=== PATIENT | male | born 1940 | race Caucasian/White ===

== ENCOUNTER 2016-07-13 14:47 | Emergency (ER) | payer OTHER ==
[~2016-07-13] VITALS: Ht 182.9 cm; Wt 73.5 kg
[~2016-07-13 14:47] MED LIST: ADVAIR 100/501 DISK IH; ADVAIR 250-501 EACH IH; ADVAIR 250/501 DISK IH; ADVAIR 500/501 DISK IH; ALBUTEROL S5 MG/1 ML AEROSOL; ALBUTEROL2.5 MG/3 M IH; ALPRAZOLAM0.25 M2 PO; AMLODIPINE BESYL5 MG PO; AUGMENTIN875 MG PO; AZITHROMYCIN250 MG1 PO; BREATHING TREATMENT IH; CEFTIN500 MG PO; CHOLESTROL PO; CIPRO500 MG PO; COLACE100 MG PO; Ceftin PO; DALIRESP500 MCG PO; DELTASONE20 M1 PO; DUONEB 2.5-0.5 M3 ML AEROSOL; Flora-Q,Risaquad PO; HYDROCODON-ACE1 EAC7 PO; LEVAQUIN500 MG PO; LEVAQUIN750 MG PO; LEVOFLOXACIN750 MG PO; Lopressor PO; MEDROL DOSEPAK4 MG PO; Macrobid PO; NAPROSYN500 MG PO; NEXIUM40 MG PO; OMEPRAZOLE40 M1 PO; PERCOCET 5/31 TABLET PO; PRAVACHOL40 MG PO; PRAVASTATIN SOD40 MG PO; PREDNISONE10 MG PO; PREDNISONE20 MG PO; PRILOSEC20 MG PO; PRILOSEC40 MG PO; PROAIR RESPICL90 MCG IH; PROBIOTIC ACID1 EACH PO; PROBIOTIC1 EACH PO; PROTONIX40 MG PO; PROVENTIL,2.5 MG/0.5 IH; SPIRIVA RESPIMAT4 GM IH; SPIRIVA1 INHALATI IH; TRAMADOL HCL50 MG PO; VALIUM5 MG PO; Vicodin,Norco 5/325 PO; ZEGERID OTC 201 EACH PO; ZITHROMAX500 MG PO; [UNRECOGNIZED DRUG - OTHER] PO; predniSONE PO
[2016-07-13 16:01] LABS: HEMATOCRIT 37.3 % (38.0-50.0); MCH 29.9 PG (29.0-34.0); MCHC 33.8 G/DL (30.0-36.0); MCV 88.6 FL (86-99); PLATELET COUNT 174 K/uL (156-360); RBC DIS.WIDTH-CV 14.9 % (11.8-14.6); RBC DIS.WIDTH-SD 47.2 % (39-53); RED BLOOD COUNT 4.21 M/uL (4.00-5.50)
[2016-07-13 16:15] LABS: CHLORIDE 104 mEq/L (99-109); POTASSIUM 3.9 mEq/L (3.7-5.4); SODIUM 140 mEq/L (136-147)
[2016-07-13 16:17] LABS: GLUCOSE 84 mg/dL (70-99)
[2016-07-13 16:19] LABS: ANION GAP 13 MEQ/L (2-14)
[2016-07-13 16:21] LABS: GFR ESTIMATE (CALCULATED) > 59 mL/min/
[2016-07-13 16:22] LABS: UREA NITROGEN (BUN) 14 mg/dL (9-23)
[2016-07-13 18:09] LABS: ADD MIUA? NO; BILIRUBIN SMALL; BLOOD NEGATIVE; COLOR DK YELLOW ((YELLOW)); GLUCOSE (STRIP) NEGATIVE; KETONES TRACE; LEUKOCYTES NEGATIVE; NITRITE NEGATIVE; PROTEIN (STRIP) 30; SPECIFIC GRAVITY 1.026 (1.000-1.030); UCUL ADDED? NO
[2016-07-13 18:40] VITALS: BP 127/89
== END 2016-07-13 18:44 | disposition home or self-care (01) ==
LOC: EME 14:47
PROVIDERS: Emergency Medicine
PROC: 0T9B70Z Drainage of Bladder with Drainage Device, Via Natural or Artificial Opening (ICD-10-PCS; principal; 2016-07-13)
DX: R30.0 Dysuria (principal); R33.9 Retention of urine, unspecified; E78.5 Hyperlipidemia, unspecified; I10 Essential (primary) hypertension; K21.9 Gastro-esophageal reflux disease without esophagitis; Z85.528 Personal history of other malignant neoplasm of kidney; Z85.46 Personal history of malignant neoplasm of prostate; Z85.51 Personal history of malignant neoplasm of bladder; Z85.118 Personal history of other malignant neoplasm of bronchus and lung; Z87.891 Personal history of nicotine dependence
CPT/HCPCS: 80048; 81003; 85027; 99281; 99285; J7030

== ENCOUNTER 2016-07-16 02:58 | Emergency (ER) | payer OTHER ==
[~2016-07-16] VITALS: Ht 182.9 cm; Wt 67.1 kg
[2016-07-16 04:10] LABS: HEMATOCRIT 35.7 % (38.0-50.0); MCH 29.8 PG (29.0-34.0); MCHC 33.9 G/DL (30.0-36.0); MCV 87.9 FL (86-99); MEAN PLAT.VOLUME 8.7 uM^3 (9.0-12.4); PLATELET COUNT 225 K/uL (156-360); RBC DIS.WIDTH-CV 14.6 % (11.8-14.6); RBC DIS.WIDTH-SD 45.9 % (39-53); RED BLOOD COUNT 4.06 M/uL (4.00-5.50); WHITE BLOOD COUNT 7.1 K/uL (4.1-10.2)
[2016-07-16 04:19] LABS: CHLORIDE 104 mEq/L (99-109); POTASSIUM 3.4 mEq/L (3.7-5.4); SODIUM 139 mEq/L (136-147)
[2016-07-16 04:21] LABS: GLUCOSE 82 mg/dL (70-99)
[2016-07-16 04:22] LABS: ANION GAP 14 MEQ/L (2-14)
[2016-07-16 04:23] LABS: TOTAL BILIRUBIN 0.6 mg/dL (0.0-1.0)
[2016-07-16 04:25] LABS: ALKALINE PHOSPHATASE 62 IU/L (3-129); GFR ESTIMATE (CALCULATED) > 59 mL/min/
[2016-07-16 04:26] LABS: UREA NITROGEN (BUN) 12 mg/dL (9-23)
[2016-07-16 04:27] LABS: DIRECT BILIRUBIN 0.3 mg/dL (0.0-0.3)
[2016-07-16 04:28] LABS: LIPASE 7 U/L (1.0-51.0)
[2016-07-16 04:31] LABS: TROP-I INTERPRETATION NEGATIVE; TROPONIN-I < 0.01 ng/mL (0.0-0.30)
[2016-07-16] MEDS ORDERED: PREDNISONE50 MG PO (05:11)
[2016-07-16 05:46] VITALS: BP 122/82
== END 2016-07-16 05:47 | disposition home or self-care (01) ==
LOC: EME → EDBD 02:58 → EME 02:58
DX: J44.1 Chronic obstructive pulmonary disease with (acute) exacerbation (principal); R10.11 Right upper quadrant pain; R11.0 Nausea; Z85.118 Personal history of other malignant neoplasm of bronchus and lung; E78.5 Hyperlipidemia, unspecified; Z87.891 Personal history of nicotine dependence
CPT/HCPCS: 71020; 76705; 80048; 80076; 83690; 83880; 84484; 85027; 93005; 99281; 99284; J7512; J7644

== ENCOUNTER 2016-07-26 13:30 | Emergency (ER) | payer OTHER ==
[~2016-07-26] VITALS: Ht 182.9 cm; Wt 68.5 kg
[~2016-07-26 13:30] MED LIST changes: +PREDNISONE50 MG PO
[2016-07-26 15:38] LABS: EOSINOPHIL (%) 1.4 % (0-5); EOSINOPHIL COUNT 0.1 K/uL (0-0.3); HEMATOCRIT 40.3 % (38.0-50.0); IMMATURE GRANULOCYTE (%) 0.8 % (0.0-0.7); IMMATURE GRANULOCYTE COUNT 0.8 K/uL; LYMPHOCYTE COUNT 1.1 K/uL (1.0-2.8); MCH 29.3 PG (29.0-34.0); MCHC 33.5 G/DL (30.0-36.0); MCV 87.6 FL (86-99); MEAN PLAT.VOLUME 9.3 uM^3 (9.0-12.4); MONOCYTE (%) 10.1 % (3-12); NEUTROPHIL COUNT 7.3 K/uL (1.8-6.4); PLATELET COUNT 284 K/uL (156-360); RBC DIS.WIDTH-CV 14.7 % (11.8-14.6); RBC DIS.WIDTH-SD 46.2 % (39-53); WHITE BLOOD COUNT 9.6 K/uL (4.1-10.2)
[2016-07-26 15:46] LABS: CHLORIDE 101 mEq/L (99-109); POTASSIUM 4.4 mEq/L (3.7-5.4); SODIUM 138 mEq/L (136-147)
[2016-07-26 15:48] LABS: GLUCOSE 156 mg/dL (70-99)
[2016-07-26 15:49] LABS: ANION GAP 13 MEQ/L (2-14)
[2016-07-26 15:50] LABS: TOTAL BILIRUBIN 0.3 mg/dL (0.0-1.0)
[2016-07-26 15:51] LABS: ALKALINE PHOSPHATASE 57 IU/L (3-129)
[2016-07-26 15:52] LABS: GFR ESTIMATE (CALCULATED) > 59 mL/min/
[2016-07-26 15:52] LABS: INFLUENZA A VIRAL ANTIGEN NEGATIVE; INFLUENZA B VIRAL ANTIGEN NEGATIVE
[2016-07-26 15:53] LABS: UREA NITROGEN (BUN) 17 mg/dL (9-23)
[2016-07-26] MEDS ORDERED: PREDNISONE50 MG PO (21:16)
[2016-07-26 21:35] VITALS: BP 122/73
== END 2016-07-26 21:37 | disposition home or self-care (01) ==
LOC: EME 13:30
PROVIDERS: Emergency Medicine
DX: J44.1 Chronic obstructive pulmonary disease with (acute) exacerbation (principal); R09.02 Hypoxemia; Z99.81 Dependence on supplemental oxygen; Z85.118 Personal history of other malignant neoplasm of bronchus and lung; I10 Essential (primary) hypertension; E78.5 Hyperlipidemia, unspecified; Z87.01 Personal history of pneumonia (recurrent); K21.9 Gastro-esophageal reflux disease without esophagitis; Z85.46 Personal history of malignant neoplasm of prostate; Z85.51 Personal history of malignant neoplasm of bladder; Z85.528 Personal history of other malignant neoplasm of kidney; Z90.2 Acquired absence of lung [part of]; Z87.891 Personal history of nicotine dependence
CPT/HCPCS: 71020; 80053; 85025; 87502; 93005; 94644; 99281; 99285; J2930; J7644

== ENCOUNTER 2016-08-01 07:24 | Inpatient (IN) | payer OTHER ==
[~2016-08-01] VITALS: Ht 182.9 cm; Wt 69.6 kg
[2016-08-01 07:54] LABS: EOSINOPHIL (%) 0.2 % (0-5); HEMATOCRIT 40.9 % (38.0-50.0); IMMATURE GRANULOCYTE (%) 0.7 % (0.0-0.7); LYMPHOCYTE COUNT 0.6 K/uL (1.0-2.8); MCH 29.9 PG (29.0-34.0); MCHC 33.7 G/DL (30.0-36.0); MCV 88.5 FL (86-99); MEAN PLAT.VOLUME 9.4 uM^3 (9.0-12.4); MONOCYTE (%) 6.5 % (3-12); MONOCYTE COUNT 0.9 K/uL (0-0.8); NEUTROPHIL (%) 87.8 % (45-76); NEUTROPHIL COUNT 11.7 K/uL (1.8-6.4); PLATELET COUNT 247 K/uL (156-360); RBC DIS.WIDTH-CV 14.7 % (11.8-14.6); RBC DIS.WIDTH-SD 46.4 % (39-53); RED BLOOD COUNT 4.62 M/uL (4.00-5.50)
[2016-08-01 08:22] LABS: ANION GAP 10 MEQ/L (2-14); CHLORIDE 97 MEQ/L (99-109); POTASSIUM 3.8 MEQ/L (3.7-5.4); SAMPLE HEMOLYSIS CHECK 0; SAMPLE ICTERIC CHECK 0; SAMPLE LIPEMIA CHECK 0; SODIUM 140 MEQ/L (136-147)
[2016-08-01 08:27] LABS: GFR ESTIMATE (CALCULATED) > 59 mL/min/; GLUCOSE 90 mg/dL (70-99); UREA NITROGEN (BUN) 19 mg/dL (9-23)
[2016-08-01 08:31] LABS: TROP-I INTERPRETATION NEGATIVE; TROPONIN-I 0.02 ng/mL (0.0-0.30); WHITE BLOOD COUNT 13.3 K/uL (4.1-10.2)
[2016-08-01] MEDS ORDERED: AZITHROMYCIN500 M1 PO (12:17)
[2016-08-01] MEDS ORDERED: DALIRESP500 MCG PO (12:18)
[2016-08-01] MEDS ORDERED: PREDNISONE50 MG PO (12:21)
[2016-08-01 12:28] VITALS: BP 144/84
[2016-08-01 14:59] VITALS: BP 130/80
[2016-08-01 21:52] VITALS: BP 134/74
[2016-08-01 23:52] VITALS: BP 127/77
[2016-08-02 04:19] VITALS: BP 122/78
[2016-08-02 06:26] LABS: HEMATOCRIT 37.7 % (38.0-50.0); MCH 28.8 PG (29.0-34.0); MCHC 32.4 G/DL (30.0-36.0); MCV 88.9 FL (86-99); MEAN PLAT.VOLUME 9.5 uM^3 (9.0-12.4); PLATELET COUNT 212 K/uL (156-360); RBC DIS.WIDTH-CV 14.9 % (11.8-14.6); RBC DIS.WIDTH-SD 48.3 % (39-53); RED BLOOD COUNT 4.24 M/uL (4.00-5.50)
[2016-08-02 06:39] LABS: ANION GAP 9 MEQ/L (2-14); CHLORIDE 99 MEQ/L (99-109); GFR ESTIMATE (CALCULATED) > 59 mL/min/; GLUCOSE 126 mg/dL (70-99); POTASSIUM 4.1 MEQ/L (3.7-5.4); SAMPLE HEMOLYSIS CHECK 0; SAMPLE ICTERIC CHECK 0; SAMPLE LIPEMIA CHECK 0; SODIUM 137 MEQ/L (136-147); UREA NITROGEN (BUN) 25 mg/dL (9-23)
[2016-08-02 07:47] VITALS: BP 136/82
[2016-08-02 16:30] VITALS: BP 130/77
[2016-08-02 18:03] VITALS: BP 159/99
[2016-08-02 23:57] VITALS: BP 145/95
[2016-08-03 08:04] VITALS: BP 140/91
[2016-08-03 16:35] VITALS: BP 136/90
[2016-08-03 22:32] VITALS: BP 125/74
[2016-08-04 07:14] LABS: ANION GAP 12 MEQ/L (2-14); CHLORIDE 99 MEQ/L (99-109); EOSINOPHIL (%) 0 % (0-5); GFR ESTIMATE (CALCULATED) > 59 mL/min/; GLUCOSE 111 mg/dL (70-99); HEMATOCRIT 42.1 % (38.0-50.0); IMMATURE GRANULOCYTE (%) 0.8 % (0.0-0.7); IMMATURE GRANULOCYTE COUNT 0.1 K/uL; LYMPHOCYTE COUNT 0.8 K/uL (1.0-2.8); MAGNESIUM 1.9 mg/dl (1.3-2.7); MCHC 33.5 G/DL (30.0-36.0); MCV 89.6 FL (86-99); MEAN PLAT.VOLUME 10.8 uM^3 (9.0-12.4); MONOCYTE (%) 1.8 % (3-12); MONOCYTE COUNT 0.2 K/uL (0-0.8); NEUTROPHIL (%) 90.6 % (45-76); NEUTROPHIL COUNT 10.8 K/uL (1.8-6.4); PLATELET COUNT 232 K/uL (156-360); POTASSIUM 3.8 MEQ/L (3.7-5.4); RBC DIS.WIDTH-CV 14.6 % (11.8-14.6); SAMPLE HEMOLYSIS CHECK 0; SAMPLE ICTERIC CHECK 0; SAMPLE LIPEMIA CHECK 0; SODIUM 139 MEQ/L (136-147); UREA NITROGEN (BUN) 33 mg/dL (9-23)
[2016-08-04 07:18] LABS: WHITE BLOOD COUNT 11.9 K/uL (4.1-10.2)
[2016-08-04 08:18] VITALS: BP 144/76
[2016-08-04 11:25] LABS: TROP-I INTERPRETATION NEGATIVE; TROPONIN-I 0.02 ng/mL (0.0-0.30)
[2016-08-04 11:54] VITALS: BP 146/86
[2016-08-04 17:11] VITALS: BP 142/95
[2016-08-04 20:14] VITALS: BP 131/76
[2016-08-04 23:45] VITALS: BP 126/82
[2016-08-05 03:20] VITALS: BP 127/79
[2016-08-05 06:51] LABS: EOSINOPHIL (%) 0 % (0-5); HEMATOCRIT 41.2 % (38.0-50.0); IMMATURE GRANULOCYTE (%) 0.7 % (0.0-0.7); IMMATURE GRANULOCYTE COUNT 0.1 K/uL; LYMPHOCYTE COUNT 0.8 K/uL (1.0-2.8); MCH 28.9 PG (29.0-34.0); MCHC 32.8 G/DL (30.0-36.0); MCV 88.2 FL (86-99); MEAN PLAT.VOLUME 10.5 uM^3 (9.0-12.4); MONOCYTE (%) 1.5 % (3-12); MONOCYTE COUNT 0.2 K/uL (0-0.8); NEUTROPHIL COUNT 10.3 K/uL (1.8-6.4); PLATELET COUNT 216 K/uL (156-360); RBC DIS.WIDTH-CV 14.4 % (11.8-14.6); RBC DIS.WIDTH-SD 45.8 % (39-53); RED BLOOD COUNT 4.67 M/uL (4.00-5.50); WHITE BLOOD COUNT 11.3 K/uL (4.1-10.2)
[2016-08-05 07:19] LABS: ANION GAP 13 MEQ/L (2-14); CHLORIDE 98 MEQ/L (99-109); GFR ESTIMATE (CALCULATED) > 59 mL/min/; GLUCOSE 118 mg/dL (70-99); MAGNESIUM 1.9 mg/dl (1.3-2.7); POTASSIUM 3.9 MEQ/L (3.7-5.4); SAMPLE HEMOLYSIS CHECK 0; SAMPLE ICTERIC CHECK 0; SAMPLE LIPEMIA CHECK 0; SODIUM 140 MEQ/L (136-147); UREA NITROGEN (BUN) 30 mg/dL (9-23)
[2016-08-05 08:26] VITALS: BP 152/80
[2016-08-05 11:18] VITALS: BP 139/79
[2016-08-05 16:08] VITALS: BP 140/65
[2016-08-05 20:08] VITALS: BP 133/78
[2016-08-05 23:12] VITALS: BP 137/79
[2016-08-06 03:41] VITALS: BP 129/67
[2016-08-06 09:08] VITALS: BP 140/85
[2016-08-06 11:52] VITALS: BP 142/79
[2016-08-06 17:52] VITALS: BP 127/74
[2016-08-06 19:56] VITALS: BP 137/77
[2016-08-06 22:40] VITALS: BP 132/76
[2016-08-07 04:06] VITALS: BP 130/66
[2016-08-07 07:35] VITALS: BP 132/55
[2016-08-07 15:53] VITALS: BP 137/77
[2016-08-07 19:13] VITALS: BP 142/75
[2016-08-07 23:44] VITALS: BP 131/72
[2016-08-08 03:12] VITALS: BP 124/61
[2016-08-08 06:49] LABS: HEMATOCRIT 37.5 % (38.0-50.0); MCH 28.8 PG (29.0-34.0); MCHC 33.1 G/DL (30.0-36.0); MCV 87.2 FL (86-99); MEAN PLAT.VOLUME 10.2 uM^3 (9.0-12.4); PLATELET COUNT 198 K/uL (156-360); RBC DIS.WIDTH-CV 14.6 % (11.8-14.6); RBC DIS.WIDTH-SD 45.8 % (39-53)
[2016-08-08 06:52] LABS: WHITE BLOOD COUNT 15.7 K/uL (4.1-10.2)
[2016-08-08 06:55] LABS: ANION GAP 10 MEQ/L (2-14); CHLORIDE 101 MEQ/L (99-109); GFR ESTIMATE (CALCULATED) > 59 mL/min/; GLUCOSE 122 mg/dL (70-99); MAGNESIUM 1.8 mg/dl (1.3-2.7); POTASSIUM 3.9 MEQ/L (3.7-5.4); SAMPLE HEMOLYSIS CHECK 0; SAMPLE ICTERIC CHECK 0; SAMPLE LIPEMIA CHECK 0; SODIUM 139 MEQ/L (136-147); UREA NITROGEN (BUN) 34 mg/dL (9-23)
[2016-08-08 08:53] VITALS: BP 132/67
[2016-08-08 12:03] VITALS: BP 127/65
[2016-08-08 16:57] VITALS: BP 118/86
[2016-08-08 19:36] VITALS: BP 128/73
[2016-08-08 22:46] VITALS: BP 132/86
[2016-08-09 07:21] LABS: HEMATOCRIT 40.3 % (38.0-50.0); MCH 28.8 PG (29.0-34.0); MCV 87.2 FL (86-99); MEAN PLAT.VOLUME 10.2 uM^3 (9.0-12.4); PLATELET COUNT 211 K/uL (156-360); RBC DIS.WIDTH-CV 14.7 % (11.8-14.6); RBC DIS.WIDTH-SD 46.9 % (39-53); RED BLOOD COUNT 4.62 M/uL (4.00-5.50); WHITE BLOOD COUNT 17.7 K/uL (4.1-10.2)
[2016-08-09 07:44] LABS: ANION GAP 14 MEQ/L (2-14); CHLORIDE 101 MEQ/L (99-109); GFR ESTIMATE (CALCULATED) > 59 mL/min/; GLUCOSE 118 mg/dL (70-99); POTASSIUM 3.8 MEQ/L (3.7-5.4); SAMPLE HEMOLYSIS CHECK 0; SAMPLE ICTERIC CHECK 0; SAMPLE LIPEMIA CHECK 0; SODIUM 140 MEQ/L (136-147); UREA NITROGEN (BUN) 32 mg/dL (9-23)
[2016-08-09 08:50] VITALS: BP 136/80
[2016-08-09 12:19] VITALS: BP 142/85
[2016-08-09 16:43] VITALS: BP 138/85
[2016-08-09 19:17] VITALS: BP 140/73
[2016-08-09 22:37] VITALS: BP 134/75
[2016-08-10 02:56] VITALS: BP 143/68
[2016-08-10 09:00] VITALS: BP 153/90
[2016-08-10 12:00] VITALS: BP 128/72
[2016-08-10 19:26] VITALS: BP 130/76
[2016-08-10 23:16] VITALS: BP 142/72
[2016-08-11 02:44] VITALS: BP 134/68
[2016-08-11 08:14] VITALS: BP 132/71
[2016-08-11 11:42] VITALS: BP 130/70
[2016-08-11] MEDS ORDERED: XOPENEX1.25 MG/0. AEROSOL (13:41)
[2016-08-11] MEDS ORDERED: DILTIAZEM 24HR180 MG PO (13:41)
[2016-08-11] MEDS ORDERED: SPIRIVA RESPIMAT4 GM IH (13:41)
[2016-08-11] MEDS ORDERED: MORPHINE CON20 MG/M1 PO (13:49)
[2016-08-11] MEDS ORDERED: ATIVAN INTE2 MG/1 ML PO (13:49)
[2016-08-11] MEDS ORDERED: PREDNISONE5 MG PO (13:49)
[2016-08-11 16:02] VITALS: BP 125/69
[2016-08-11 22:49] VITALS: BP 121/65
[2016-08-12 04:06] VITALS: BP 132/78
[2016-08-12 08:20] VITALS: BP 136/75
[2016-08-12 16:52] VITALS: BP 118/79
== END 2016-08-12 16:34 | disposition hospice, home (50) | DRG 189 ==
LOC: EME → EDBD 07:24 → EME 07:24 → 5WEST 10:41 → EDOF 10:41 → 5WEST 12:13 → 5EAST 08-02 14:21 → 5WEST 08-02 14:21 → 5EAST 08-02 17:59
PROVIDERS: Emergency Medicine; Internal Medicine; Physician Assistant Medical
DX: J96.21 Acute and chronic respiratory failure with hypoxia (principal); J44.0 Chronic obstructive pulmonary disease with (acute) lower respiratory infection; J44.1 Chronic obstructive pulmonary disease with (acute) exacerbation; I47.1 Supraventricular tachycardia; I71.2 Thoracic aortic aneurysm, without rupture; I10 Essential (primary) hypertension; E78.5 Hyperlipidemia, unspecified; K21.9 Gastro-esophageal reflux disease without esophagitis; N40.1 Benign prostatic hyperplasia with lower urinary tract symptoms; G47.00 Insomnia, unspecified; F41.9 Anxiety disorder, unspecified; M19.90 Unspecified osteoarthritis, unspecified site; Z87.01 Personal history of pneumonia (recurrent); F17.210 Nicotine dependence, cigarettes, uncomplicated; Z85.118 Personal history of other malignant neoplasm of bronchus and lung; Z85.528 Personal history of other malignant neoplasm of kidney; Z90.5 Acquired absence of kidney; Z85.51 Personal history of malignant neoplasm of bladder
CPT/HCPCS: 36600; 71010; 71275; 80048; 80198; 82803; 83735; 83880; 84484; 85025; 85027; 87070; 87106; 87205; 93005; 94640; 94640 76; 94660; 94760; 94799; 99202; 99281; 99285; G0378; J1644; J2920; J2930; J7512; J7644